=== PATIENT | female | born 1940 | race Caucasian/White ===

== ENCOUNTER → 2019-10-13 13:47 | Outpatient (CLI) | payer MEDICARE, OTHER, SELFPAY ==
[2019-10-14 15:48] LABS: COVID19 Sendout Not Detected (Not Detect)
== END ==
PROVIDERS: PCP Nurse Practitioner Family; Visit Provider Nurse Practitioner
DX: Z11.59 Encounter for screening for other viral diseases (principal)
CPT/HCPCS: 87635

== ENCOUNTER 2019-10-16 11:21 | Day surgery (SDC) | payer MEDICARE, OTHER, SELFPAY ==
--- NOTE | 2019-10-16 | PATH_ITS ---
[facility] Accession Number: [id number] . 01 Material submitted: . sinus, maxillary - LEFT MAXILLARY SINUS . 01 Diagnosis: A. Left Maxillary Sinus, Biopsy: Upper Respiratory tract mucosa with severely, acutely and chronically, inflamed polypoid granulation tissue. Negative for dysplasia and malignancy. Fungal ball is present. MRV 10/20/2019 1607 Local . 01 Comment: A separate fragment of dense fungal growth with hyphal forms and no associated tissue is present. Clinical and radiographic correlation is necessary to determine the clinical significance of this finding. . Dr. Rooney reviewed this case and concurs with the interpretation. . 01 Electronically signed: . Pallavi Vergara MD, Pathologist NPI- [id number] . 01 Gross description: . The specimen is received in formalin, labeled left maxillary sinus and consists of multiple angulo-pink fragments of soft tissue, measuring 2.0 x 1.0 x 0.3 cm in aggregate. The specimen is filtered and entirely submitted in cassette A1. ([id number]) /[facility] 10/17/2019 1546 Local . 01 Pathologist provided ICD-10: J01.00 . 01 CPT . 036852 Performed at: 01 [facility] [address] [place] [address] [address], [place], [place] [id number] MD Rebel Houston MD Phone: [phone]
[2019-10-16] MEDS: ACETAMINOPHEN 325 MG TABLET 975 MG PO (12:09)
[2019-10-16] MEDS: OXYMETAZOLINE NASAL SPRAY 30 ML 2 SPRAYS NASAL (12:10)
[2019-10-16] MEDS: LACTATED RINGERS 1,000 ML 120 ML IV (12:10)
[2019-10-16 12:15] VITALS: BP 157/90; PULSE 84; RESP 16; TEMP 36.6; O2SAT 99; BMI 20.7
[2019-10-16 12:21] LABS: COVID19 -Nasal RAPID Negative (Negative)
--- NOTE | 2019-10-16 13:10 | PM.PREOP ---
Pre-operative Note COVID-19 COVID-19 status: Negative Interval Note History & Physical reviewed/Exam performed by Physician: Yes Changes to H&P: No
--- NOTE | 2019-10-16 13:10 | PM.OP.1 ---
Operative Date/Time/Diagnoses Date of procedure: 10/16/19 Time of procedure: 14:46 Pre-op diagnosis: LEFT chronic maxillary and ethmoid sinusitis, possible nasal mass Post-op diagnosis: same Procedure & Clinicians Procedure: LEFT endoscopic maxillary antrostomy with tissue removal, LEFT endoscopic anterior ethmoidectomy Same procedure as scheduled: Yes Indications: 78 yo female with the above diagnoses presents for the above procedures due to failure of medical therapy. Following discussion of the material risks, benefits, complications, and alternatives, she elected to proceed. Surgeon: Hector Tran Click Yes if Unassisted: Yes Anesthesia Type: General Operative Notes Findings: Left irregular maxillary sinus filled with thick peanut butter consistency debris along with some purulence. Maxillary sinus cavity was irregular with multiple pockets filled with purulence, eventually completely irrigated. Inflamed mucosa sampled for pathology, multiple cultures taken. Ethmoid bulla partially previously resected from the chronic disease process. Some exposed periorbita, but no penetration. 2+ left septal deviation but adequate access to the maxillary sinus. Closure Type: not applicable Specimen(s): other (Culture left maxillary sinus, tissue samples left maxillary sinus to pathology) Estimated Blood Loss (mL): 60 Blood products transfused: none Procedure in detail: Following identification and confirmation of consent, as well as preoperative Afrin nasal spray, the patient was brought to the operating room suite and placed in the supine position. General endotracheal anesthesia was administered. Following sterile prep and drape, under endoscopic guidance I infiltrated the anterior superior and posterior insertion of the left middle turbinate with 1% lidocaine 1 100,000 epinephrine. Uncinectomy was performed with backbiting forceps and the microdebrider. Copious debris required suction and irrigation from the maxillary antrostomy including a larger posterior pocket. The 30 and 70 degree endoscopes were also utilized to remove inflamed tissue at the antrostomy edge as well as to irrigate individual pockets of purulence until clear. The Ethmoid bulla was resected with the microdebrider, although had been partially eroded previously from the chronic disease process. Hemostasis was excellent at completion. Sponge counts were correct, and she was extubated in the operating room and taken to recovery in stable condition without complication. Postoperative care: Nasal saline spray every hour while awake, begin irrigations t.i.d. tomorrow, use Afrin for any bleeding. Follow-up in 1 week. The patient agrees with the plan, understands, and is appreciative. Complications: none Post-operative Condition: stable Disposition: same day surgery Plan for aftercare: D/C home
--- NOTE | 2019-10-16 14:03 | SUR.OPER ---
Supine on padded OR bed, head on pillow, right arm padded and tucked at side, left arm on padded arm board <90 degrees, legs uncrossed with pillow underneath, safety belt at thigh, tape over blanket over lower legs .
[2019-10-16] MEDS: LIDOCAINE 1% W/EPI 20 ML INJ (14:29)
[2019-10-16] MEDS: LACTATED RINGERS 1,000 ML 42 ML IV (14:35)
[2019-10-16 14:56] VITALS: BP 126/77; PULSE 69; RESP 20; TEMP 36.3; O2SAT 93
[2019-10-16 15:01] VITALS: BP 122/76; PULSE 73; RESP 18; O2SAT 91
[2019-10-16 15:06] VITALS: BP 135/77; PULSE 76; RESP 16; O2SAT 95
[2019-10-16 15:10] VITALS: BP 138/79; PULSE 77; RESP 16; O2SAT 96
[2019-10-16 15:14] VITALS: BP 125/86; PULSE 75; RESP 12; TEMP 36.2; O2SAT 97
== END 2019-10-16 15:40 | disposition home or self-care (01) ==
PROVIDERS: Referring Provider Otolaryngology; Visit Provider Otolaryngology
PROC: (CPT 31231; principal; 2019-10-16 12:45)
DX: J01.00 Acute maxillary sinusitis, unspecified (principal); J32.0 Chronic maxillary sinusitis
CPT/HCPCS: 31254; 31267; 87070; 87635; J0330; J1100; J2405; J2704

== ENCOUNTER 2021-08-05 06:53 | Day surgery (SDC) | payer MEDICARE, OTHER, SELFPAY ==
[2021-08-04 12:39] VITALS: BMI 21.5
--- NOTE | 2021-08-05 07:13 | PM.PREOP ---
Pre-operative Note Interval Note History & Physical reviewed/Exam performed by Physician: Yes Changes to H&P: No
--- NOTE | 2021-08-05 07:13 | PM.OP.1 ---
Operative Date/Time/Diagnoses Date of procedure: 08/05/21 Time of procedure: 08:17 Pre-op diagnosis: Closed nasal fracture with new external nasal deformity Post-op diagnosis: same Procedure & Clinicians Procedure: Closed reduction nasal fracture Same procedure as scheduled: Yes Indications: 80-year-old female status post ground level fall with primarily left nasal trauma 12 days ago presents for the above procedure. Following discussion of the material risks benefits complications and alternatives, she elected to proceed. Surgeon: Hector Tran Click Yes if Unassisted: Yes Anesthesia Type: General and Local Operative Notes Findings: Nasal pyramid mildly shifted to the right, reduced Estimated Blood Loss (mL): 5 Procedure in detail: Following identification and confirmation of consent, as well as preoperative Afrin nasal spray she was brought to the operating suite and placed in the supine position. General mask anesthesia was administered. I packed small cotton balls with Afrin and 4% lidocaine tightly under the nasal bones bilaterally for a full minute. Upon removal, the Boies elevator was placed underneath the left depressed nasal bone, and external digital pressure was simultaneously applied over the elevated right nasal bone and the nasal pyramid was reduced past midline to allow eventual midline position, stable. The cotton was temporarily replaced underneath the nasal nasal bones for mild bleeding and was removed after another minute with good hemostasis She was awakened in the operating room and taken to recovery room stable condition without known complication. Complications: none Post-operative Condition: stable Disposition: same day surgery Plan for aftercare: Ice as tolerated, Tylenol and or Advil for pain control, Afrin for any bleeding, saline for moisturization
[2021-08-05 07:30] LABS: COVID19 -Nasal RAPID Negative (Negative)
[2021-08-05 07:31] VITALS: BP 149/79; PULSE 74; RESP 16; TEMP 36.6; O2SAT 99; BMI 21.5
[2021-08-05] MEDS: LACTATED RINGERS 1,000 ML 42 ML IV (07:49)
--- NOTE | 2021-08-05 08:09 | SUR.OPER ---
Supine on padded OR bed, head on pillow, left arm secured on padded arm boards at <90 degrees abduction, right arm on side, legs uncrossed, safety belt at thigh, tape over blanket over lower legs.
[2021-08-05] MEDS: LIDOCAINE 4% SOLN 50 ML 20 ML TOP (08:12)
[2021-08-05] MEDS: OXYMETAZOLINE NASAL SPRAY 15 ML 2 SPRAYS NASAL (08:12)
[2021-08-05 08:21] VITALS: BP 166/61; PULSE 67; RESP 15; TEMP 36.3; O2SAT 99
[2021-08-05 08:26] VITALS: BP 134/61; PULSE 67; RESP 13; O2SAT 99
[2021-08-05] MEDS: ACETAMINOPHEN 325 MG TABLET 650 MG PO (08:26)
[2021-08-05 08:31] VITALS: BP 141/71; PULSE 67; RESP 15; O2SAT 99
[2021-08-05 08:36] VITALS: BP 147/76; PULSE 66; RESP 14; O2SAT 99
[2021-08-05 08:40] VITALS: BP 152/74; PULSE 67; RESP 15; O2SAT 99
--- NOTE | 2021-08-05 08:54 | SUR.PHASEII ---
discharge instructions reviewed with pt and she verbalized understanding.
== END 2021-08-05 08:58 | disposition home or self-care (01) ==
PROVIDERS: Referring Provider Otolaryngology; Visit Provider Otolaryngology
PROC: 0NSBXZZ Reposition Nasal Bone, External Approach (ICD-10-PCS; CPT 21315; principal; 2021-08-05 08:45)
DX: S02.2XXA Fracture of nasal bones, initial encounter for closed fracture (principal); W18.30XA Fall on same level, unspecified, initial encounter; Z20.822 Contact with and (suspected) exposure to COVID-19
CPT/HCPCS: 21315; 87635; A9270; J1100; J2704

== ENCOUNTER 2022-06-01 09:19 | Day surgery (SDC) | payer MEDICARE, SELFPAY ==
[2022-06-01 09:35] VITALS: BP 177/93; PULSE 90; RESP 16; TEMP 36.4; O2SAT 100; BMI 20.4
[2022-06-01] MEDS: LACTATED RINGERS 1,000 ML 84 ML IV (09:47)
--- NOTE | 2022-06-01 10:37 | PM.HP.1 ---
History of Present Illness History of Present Illness Date Patient Seen: 06/01/22 Time Patient Seen: 10:37 Chief complaint: [facility] [place]arrative: Ester is a 81-year-old woman here for colonoscopy. Her last 1 was about 5 years ago and polyps were removed. Her mother of colon cancer at 90. She would like to continue preventative measures going forward. 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 Surgical History (Updated 08/04/21 @ 12:46 by Meera Reyez RN) History of colonoscopy (03/2017) History of ear, nose, and throat (ENT) surgery (10/16/19) Social History household members: none Smoking Status: Never smoker alcohol intake: current Meds Home Medications and Allergies Home Medications Medication Instructions Recorded Confirmed Type coenzyme Q10 100 mg capsule (Co 100 mg PO DAILY ##0 09/09/09 08/04/21 History Q-10) multivitamin 1 cap PO DAILY ##0 09/09/09 08/04/21 History [SACCHAROMCES bOUBARD] 1 cap PO QAM ##0 03/20/17 10/16/19 History [SUPER MAGCAL] 1 tab PO QPM ##0 03/20/17 06/01/22 History [ULTRA OMEGA 3] 1 tab PO QDAY ##0 03/20/17 10/16/19 History ascorbic acid (vitamin C) 500 mg 1,000 mg PO QDAY ##0 03/20/17 06/01/22 History tablet cholecalciferol (vitamin D3) 125 5,000 unit PO DAILY ##0 03/20/17 06/01/22 History mcg (5,000 unit) capsule melatonin 2.5 mg chewable tablet 2.5 mg PO HS ##0 03/20/17 08/04/21 History methylsulfonylmethane 1,000 mg 1,000 mg PO BID ##0 03/20/17 08/04/21 History capsule (MSM) resveratrol-grape skin extract 2,000 mg PO QDAY ##0 03/20/17 08/04/21 History sodium sul 1.479 gram-potas ch See Rx Instructions PO PER PKG DIR 05/09/22 Rx 0.188 gram-magnes sul 0.225 gram #24 tabs tablet (Sutab) Allergies Allergy/AdvReac Type Severity Reaction Status Date / Time No Known Drug Allergies Allergy Verified 08/05/21 07:48 Exam Vital Signs (past 8 hours): - 06/01/22 09:35 Temperature 97.6 F Pulse Rate 90 Respiratory Rate 16 Blood Pressure 177/93 H Pulse Oximetry 100 Oxygen Delivery Method Room Air Oxygen Delivery Method Room Air Const General: healthy appearing Assessment & Plan Assessment and plan (1) Family hx of colon cancer requiring screening colonoscopy: Status: Acute Plan We reviewed the risks and benefits of colonoscopy and she would like to proceed
--- NOTE | 2022-06-01 11:00 | PM.OP.COLON ---
Operative Date/Time/Diagnoses Date of procedure: 06/01/22 Time of procedure: 11:00 Pre-op diagnosis: Family history of colon cancer Post-op diagnosis: same Procedure & Clinicians Study performed: Colonoscopy Same procedure as scheduled: Yes Surgeon: Shahbaz Ramesh Procedure Notes Procedure in detail: Surgeon: Shahbaz Ramesh MD Anesthesia: Giacomo Ibrahim CRNA Procedure: The patient was brought to the endoscopy suite, placed in left lateral decubitus position. The patient was connected to monitoring devices. A time-out was performed. Sedation was administered. Once the patient was adequately sedated, a digital rectal exam was performed and was normal. The scope was then inserted and advanced to the cecum where the appendiceal orifice was identified and photographed. The scope was then slowly withdrawn over greater than 6 minutes. The mucosa was thoroughly inspected. There were a few scattered diverticula. The scope was retroflexed in the rectum. No other abnormalities were seen. The scope was straightened and removed. The patient was awakened and brought to recovery. Scope withdrawal time: 7 minutes Sedation time: 14 minutes EBL: 0 Findings: Rare scattered diverticula Post-procedure Disposition: PACU
[2022-06-01 11:06] VITALS: BP 82/38; PULSE 66; RESP 11; O2SAT 97
[2022-06-01 11:07] VITALS: BP 81/43; BP 87/42; PULSE 66; PULSE 68; RESP 15; RESP 18; TEMP 36.7; O2SAT 96
[2022-06-01 11:15] VITALS: BP 88/41; PULSE 66; RESP 16; O2SAT 98
[2022-06-01 11:18] VITALS: BP 114/54; PULSE 66; RESP 13; O2SAT 99
== END 2022-06-01 11:29 | disposition home or self-care (01) ==
PROVIDERS: PCP Registered Nurse; Referring Provider Surgery; Visit Provider Surgery
PROC: 0DJD8ZZ Inspection of Lower Intestinal Tract, Via Natural or Artificial Opening Endoscopic (ICD-10-PCS; CPT 45378; principal; 2022-06-01 10:15)
DX: Z12.11 Encounter for screening for malignant neoplasm of colon (principal); Z80.0 Family history of malignant neoplasm of digestive organs; K57.30 Diverticulosis of large intestine without perforation or abscess without bleeding
CPT/HCPCS: 45378; J2704